=== PATIENT | male | born 1945 | race Caucasian/White ===

== ENCOUNTER 2018-08-24 20:51 | Emergency (ER) | payer MEDICARE, OTHER, SELFPAY ==
[~2018-08-24] VITALS: Ht 165.1 cm; Wt 70.0 kg
[2018-08-24] MEDS ORDERED: DIPHENHYDRAMINE 25 MG CAPSULE ONE (21:39)
[2018-08-24 21:50] VITALS: BP 152/81
[2018-08-24] MEDS ORDERED: PLEASE ENTER ALLERGIES MC SCH (22:00)
[2018-08-24] MEDS ORDERED: DIPHENHYDRAMINE 25 MG CAPSULE PO ONE (22:00)
[2018-08-24] MEDS ORDERED: PLEASE ENTER HEIGHT AND WEIGHT MC SCH (22:00)
== END 2018-08-24 23:09 | disposition home or self-care (01) ==
LOC: ED 22:53
DX: L29.9 Pruritus, unspecified (principal); R07.9 Chest pain, unspecified; R06.02 Shortness of breath; R05 Cough; R51 Headache; W57.XXXA Bitten or stung by nonvenomous insect and other nonvenomous arthropods, initial encounter; Y93.89 Activity, other specified; Y92.89 Other specified places as the place of occurrence of the external cause; Y99.8 Other external cause status
CPT/HCPCS: 99283

== ENCOUNTER 2018-08-26 07:42 | Inpatient (IN) | payer MEDICARE ==
[~2018-08-26] VITALS: Ht 172.7 cm; Wt 63.0 kg
[2018-08-26] MEDS ORDERED: SODIUM CHLORIDE 0.9% 1,000ML IVBOLUS ONE (08:00)
[2018-08-26] MEDS ORDERED: DIPHENHYDRAMINE 50 MG/ML, 1ML IVPush ONE (08:00)
[2018-08-26] MEDS ORDERED: ONDANSETRON 2MG/ML, 2ML IVPush ONE (08:00)
--- NOTE | 2018-08-26 08:03 | NUR ---
PT BIB [facility] AMBUL[facility] THIS AM. PT SHOWS BILATERAL LE WEEPING EDEMA, AND GENERALIZED BODY RASH ANDSCABBING INDICATING SCABIES INFECTION. PT SHOWS DRY MUCOUS MEMBRANES AND FATIGUE. PT IS SOMEWHAT TACHYPNEIC. PLACED ON MONITORS.
[2018-08-26] MEDS ORDERED: PLEASE ENTER HEIGHT AND WEIGHT MC SCH (08:30)
--- NOTE | 2018-08-26 08:46 | NUR ---
IV ACCESS OBTAINED, LAB IS AT BEDSIDE FOR BC X 2. UA SENT TO LAB. PILLOW AND BLANKET PROVIDED.
[2018-08-26] MEDS ORDERED: PERMETHRIN CRM 5%, 60GM ONE (08:49)
[2018-08-26 08:53] LABS: MEAN CORPUSCULAR HEMOGLOBIN 32.3 pg (27.5-34.5); MEAN CORPUSCULAR HGB CONC 33.8 g/dL (33.2-36.2); MEAN CORPUSCULAR VOLUME 95.6 fL (81-97); MEAN PLATELET VOLUME 7.7 fL (7.4-10.4); PLATELET COUNT 305 x10^3/uL (130-400); RED BLOOD COUNT 3.62 x10^6/uL (4.38-5.82); RED CELL DISTRIBUTION WIDTH 13.8 % (9.4-14.8)
[2018-08-26 08:57] LABS: CULTURE INDICATED? YES; MICROSCOPIC INDICATED
[2018-08-26 09:03] LABS: ANION GAP 11 mmol/L (5-15); CALCIUM 8.4 mg/dL (8.5-10.1); CHLORIDE 113 mmol/L (98-107)
[2018-08-26 09:06] LABS: ALANINE AMINOTRANSFERASE 23 U/L (12-78); ALKALINE PHOSPHATASE 63 U/L (45-117)
[2018-08-26 09:09] LABS: BASOPHILS # (AUTO) 0.01 x10^3/uL (0-0.1); BASOPHILS % (AUTO) 0 % (0-1); EOSINOPHILS # (AUTO) 0.03 x10^3/uL (0-0.4); EOSINOPHILS % (AUTO) 0 % (1-7); LYMPHOCYTES # (AUTO) 0.31 x10^3/uL (1-3.4); LYMPHOCYTES % (AUTO) 2 % (22-44); MD SCAN; MONOCYTES # (AUTO) 0.63 x10^3/uL (0.2-0.8); MONOCYTES % (AUTO) 4 % (2-9); NEUTROPHILS # (AUTO) 13.92 x10^3/uL (1.8-6.8); NEUTROPHILS % (AUTO) 94 % (42-75)
[2018-08-26] MEDS ORDERED: AMPICILLIN/SULBACTAM 3 GM in SODIUM CHLORIDE 0.9% 100 ML IV ONE (10:00)
--- NOTE | 2018-08-26 10:10 | NUR ---
PT IS ON ALL MONITORS WITH AUDIBLE ALARMS. CALL LIGHT IS WITHIN REACH.
[2018-08-26] MEDS ORDERED: ONDANSETRON 2MG/ML, 2ML ONE (10:19)
[2018-08-26] MEDS ORDERED: DIPHENHYDRAMINE 50 MG/ML, 1ML ONE (10:19)
[2018-08-26] MEDS ORDERED: PERMETHRIN CRM 5%, 60GM TP SCH (10:30)
--- NOTE | 2018-08-26 10:39 | NUR ---
PT IS FEBRILE, DR. LOPEZ MADE AWARE.
[2018-08-26] MEDS ORDERED: ACETAMINOPHEN 650 MG SUPP PR PRN (11:00)
--- NOTE | 2018-08-26 11:08 | NUR ---
ADMITTING MD AT BEDSIDE. CXR DONE, EKG DONE. PLACED PT ON OXYMASK FOR RECURRENT PERIODS OF DESATURATION. Addendum: 08/26/18 at 1109 by MARTHA FLU SWAB SENT TO LAB.
[2018-08-26] MEDS ORDERED: VANCOMYCIN PER PHARMACY MC PRN (11:30)
[2018-08-26] MEDS ORDERED: ONDANSETRON 2MG/ML, 2ML IVPush PRN (11:30)
[2018-08-26] MEDS ORDERED: ONDANSETRON ODT 4 MG PO PRN (11:30)
[2018-08-26] MEDS ORDERED: ACETAMINOPHEN 325 MG TABLET PO PRN (11:30)
[2018-08-26] MEDS ORDERED: PHARMACY MAY ADJ FOR RENAL FX MC PRN (11:30)
[2018-08-26] MEDS ORDERED: POLYETHYLENE GLYCOL 17 GM PACKET PO PRN (11:30)
[2018-08-26] MEDS ORDERED: BISACODYL 10 MG SUPP PR PRN (11:30)
--- NOTE | 2018-08-26 11:32 | NUR ---
CALLED REPORT TO RECEIVING RN. REGAN FOR PT TO GO TO THE FLOOR NOW. Addendum: 08/26/18 at 1248 by LFABELA ADMINISTERED TYLENOL CT AT 1115.
[2018-08-26] MEDS ORDERED: ACETAMINOPHEN 325 MG SUPP ONE (11:37)
[2018-08-26 12:23] VITALS: BP 145/75
[2018-08-26] MEDS: SODIUM CHLORIDE 0.9% 1,000 ML IV SCH ×2 (12:35→20:09)
[2018-08-26] MEDS ORDERED: PHARMACOKINETIC MONITORING MC PRN (13:00)
[2018-08-26] MEDS ORDERED: PHARMACOKINETIC CONSULTATION MC ONE (13:00)
[2018-08-26 13:19] LABS: RAPID INFLUENZA A Negative (Negative); RAPID INFLUENZA B Negative (Negative)
[2018-08-26] MEDS: PIPERACILLIN/TAZO/PMX 3.375GM 50 ML IV SCH ×2 (13:21→20:09)
[2018-08-26] MEDS: HEPARIN 5,000 UNITS/ML, 1ML SQ SCH ×2 (13:58→22:59)
[2018-08-26] MEDS: VANCOMYCIN 1,600 MG in SODIUM CHLORIDE 0.9% 250 ML IV SCH (13:58)
[2018-08-26 20:00] VITALS: BP 145/72
[2018-08-27 01:13] VITALS: BP 133/70
[2018-08-27] MEDS: PIPERACILLIN/TAZO/PMX 3.375GM 50 ML IV SCH ×5 (02:58→20:55)
[2018-08-27 04:13] LABS: ANION GAP 9 mmol/L (5-15); CALCIUM 6.9 mg/dL (8.5-10.1); CHLORIDE 121 mmol/L (98-107)
[2018-08-27 04:16] LABS: ALANINE AMINOTRANSFERASE 18 U/L (12-78); ALKALINE PHOSPHATASE 46 U/L (45-117); BILIRUBIN,TOTAL 0.9 mg/dL (0.2-1.0); CREATININE 2.28 mg/dL (0.7-1.3); TOTAL PROTEIN 5.7 g/dL (6.4-8.2)
[2018-08-27 04:18] LABS: MEAN CORPUSCULAR HEMOGLOBIN 33.1 pg (27.5-34.5); MEAN CORPUSCULAR HGB CONC 34.4 g/dL (33.2-36.2); MEAN CORPUSCULAR VOLUME 96.2 fL (81-97); MEAN PLATELET VOLUME 7.8 fL (7.4-10.4); PLATELET COUNT 215 x10^3/uL (130-400); RED BLOOD COUNT 3.06 x10^6/uL (4.38-5.82)
[2018-08-27 05:13] LABS: BASOPHILS % (AUTO) 0 % (0-1); EOSINOPHILS # (AUTO) 0.01 x10^3/uL (0-0.4); EOSINOPHILS % (AUTO) 0 % (1-7); LYMPHOCYTES # (AUTO) 0.28 x10^3/uL (1-3.4); LYMPHOCYTES % (AUTO) 2 % (22-44); MD SCAN; MONOCYTES # (AUTO) 0.74 x10^3/uL (0.2-0.8); MONOCYTES % (AUTO) 5 % (2-9); NEUTROPHILS # (AUTO) 14.78 x10^3/uL (1.8-6.8); NEUTROPHILS % (AUTO) 94 % (42-75)
[2018-08-27] MEDS: HEPARIN 5,000 UNITS/ML, 1ML SQ SCH ×3 (06:34→20:57)
[2018-08-27] MEDS: SODIUM CHLORIDE 0.9% 1,000 ML IV SCH (06:35)
[2018-08-27 07:39] VITALS: BP 118/68
[2018-08-27] MEDS: VANCOMYCIN 1,600 MG in SODIUM CHLORIDE 0.9% 250 ML IV SCH (14:11)
[2018-08-27 15:14] LABS: CALCIUM 7.8 mg/dL (8.5-10.1)
[2018-08-27 15:19] LABS: ABSOLUTE RETICS # 0.043 x10^6/uL (0.5-1.5); RED BLOOD COUNT 3.31 x10^6/uL (4.38-5.82); RETICULOCYTE COUNT % 1.3 % (0.5-1.5)
[2018-08-27 15:37] VITALS: BP 116/71
[2018-08-27 18:47] LABS: MICROSCOPIC INDICATED
[2018-08-27 19:02] LABS: POTASSIUM,URINE RANDOM 57 mmol/L; SODIUM,URINE RANDOM 8 mmol/L; TOTAL PROTEIN,URINE RANDOM 102 mg/dL (0-12)
[2018-08-27 19:03] LABS: CHLORIDE,URINE RANDOM < 10 mmol/L
[2018-08-27 19:13] LABS: OSMOLALITY,URINE 509 mOsm/kg (500-850)
[2018-08-27 20:56] VITALS: BP 129/74
[2018-08-28 01:58] VITALS: BP 131/75
[2018-08-28] MEDS: PIPERACILLIN/TAZO/PMX 3.375GM 50 ML IV SCH ×4 (03:31→21:00)
[2018-08-28 04:40] LABS: MEAN CORPUSCULAR HGB CONC 33.8 g/dL (33.2-36.2); MEAN CORPUSCULAR VOLUME 97.8 fL (81-97); MEAN PLATELET VOLUME 7.9 fL (7.4-10.4); PLATELET COUNT 227 x10^3/uL (130-400); RED BLOOD COUNT 3.22 x10^6/uL (4.38-5.82); RED CELL DISTRIBUTION WIDTH 13.9 % (9.4-14.8)
[2018-08-28 04:51] LABS: ALANINE AMINOTRANSFERASE 19 U/L (12-78); ANION GAP 10 mmol/L (5-15); CALCIUM 7.6 mg/dL (8.5-10.1); CHLORIDE 117 mmol/L (98-107); CREATININE 2.27 mg/dL (0.7-1.3)
[2018-08-28 04:54] LABS: ALKALINE PHOSPHATASE 52 U/L (45-117); BILIRUBIN,TOTAL 0.7 mg/dL (0.2-1.0); CREATINE KINASE, TOTAL 183 U/L (39-308); TOTAL PROTEIN 5.8 g/dL (6.4-8.2)
[2018-08-28 05:00] LABS: BASOPHILS % (AUTO) 0 % (0-1); EOSINOPHILS # (AUTO) 0.14 x10^3/uL (0-0.4); EOSINOPHILS % (AUTO) 1 % (1-7); LYMPHOCYTES % (AUTO) 3 % (22-44); MD SCAN; MONOCYTES # (AUTO) 0.92 x10^3/uL (0.2-0.8); MONOCYTES % (AUTO) 5 % (2-9); NEUTROPHILS # (AUTO) 15.75 x10^3/uL (1.8-6.8); NEUTROPHILS % (AUTO) 91 % (42-75)
[2018-08-28] MEDS: HEPARIN 5,000 UNITS/ML, 1ML SQ SCH ×3 (05:56→21:10)
[2018-08-28 07:35] VITALS: BP 132/74
[2018-08-28 12:01] VITALS: BP 125/61
[2018-08-28] MEDS: ERGOCALCIFEROL 50,000 UNIT CAPSULE PO SCH (12:43)
[2018-08-28] MEDS: IRON SUCROSE COMPLEX 100MG/5ML IV SCH (12:43)
[2018-08-28 20:00] VITALS: BP 132/75
[2018-08-29] MEDS: PIPERACILLIN/TAZO/PMX 3.375GM 50 ML IV SCH ×4 (01:51→22:27)
[2018-08-29 02:00] VITALS: BP 138/70
[2018-08-29] MEDS: HEPARIN 5,000 UNITS/ML, 1ML SQ SCH (04:31)
[2018-08-29 06:19] LABS: CHLORIDE 117 mmol/L (98-107)
[2018-08-29 06:27] LABS: ALANINE AMINOTRANSFERASE 64 U/L (12-78); ALBUMIN 1.9 g/dL (3.4-5.0); ALKALINE PHOSPHATASE 64 U/L (45-117); ANION GAP 11 mmol/L (5-15); BILIRUBIN,TOTAL 0.4 mg/dL (0.2-1.0); CALCIUM 7.6 mg/dL (8.5-10.1); CREATININE 1.98 mg/dL (0.7-1.3); TOTAL PROTEIN 5.6 g/dL (6.4-8.2)
[2018-08-29 07:16] VITALS: BP 129/65
[2018-08-29 08:04] LABS: MEAN CORPUSCULAR HEMOGLOBIN 31.9 pg (27.5-34.5); MEAN CORPUSCULAR HGB CONC 33.3 g/dL (33.2-36.2); MEAN CORPUSCULAR VOLUME 95.8 fL (81-97); RED BLOOD COUNT 3.32 x10^6/uL (4.38-5.82); RED CELL DISTRIBUTION WIDTH 14.1 % (9.4-14.8)
[2018-08-29 08:22] LABS: BASOPHILS # (AUTO) 0.01 x10^3/uL (0-0.1); BASOPHILS % (AUTO) 0 % (0-1); EOSINOPHILS # (AUTO) 0.36 x10^3/uL (0-0.4); EOSINOPHILS % (AUTO) 2 % (1-7); LYMPHOCYTES # (AUTO) 0.51 x10^3/uL (1-3.4); LYMPHOCYTES % (AUTO) 4 % (22-44); MD MORPH REVIEW ONLY; MEAN PLATELET VOLUME 8.4 fL (7.4-10.4); MONOCYTES # (AUTO) 0.75 x10^3/uL (0.2-0.8); MONOCYTES % (AUTO) 5 % (2-9); NEUTROPHILS % (AUTO) 89 % (42-75); PLATELET COUNT 245 x10^3/uL (130-400)
[2018-08-29 08:23] LABS: <RBC MORPHOLOGY> NORMAL; TOXIC GRAN 1+
[2018-08-29 09:08] LABS: <PLATELET ESTIMATE> ADEQUATE; <PLT MORPHOLOGY> NORMAL PLT MORPH
[2018-08-29] MEDS ORDERED: CALAMINE LOTION 180ML TP PRN (11:00)
[2018-08-29 11:02] LABS: OCCULT BLOOD POSITIVE (NEGATIVE)
[2018-08-29] MEDS: SODIUM BICARBONATE 650 MG TABLET PO SCH ×2 (11:48→20:03)
[2018-08-29 13:55] VITALS: BP_SYST 164; BP_SYST 165; BP_DIAS 82; BP_DIAS 87
[2018-08-29] MEDS ORDERED: VANCOMYCIN 1,300 MG in SODIUM CHLORIDE 0.9% 250 ML IV SCH (15:30)
[2018-08-29 20:00] VITALS: BP 179/88
[2018-08-29] MEDS: IRON SUCROSE COMPLEX 100MG/5ML IV SCH (20:03)
[2018-08-30 03:50] VITALS: BP 163/80
[2018-08-30] MEDS: PIPERACILLIN/TAZO/PMX 3.375GM 50 ML IV SCH ×2 (03:51→11:56)
[2018-08-30 05:38] LABS: BASOPHILS # (AUTO) 0.05 x10^3/uL (0-0.1); BASOPHILS % (AUTO) 0 % (0-1); EOSINOPHILS # (AUTO) 0.74 x10^3/uL (0-0.4); EOSINOPHILS % (AUTO) 6 % (1-7); LYMPHOCYTES % (AUTO) 4 % (22-44); MD NO; MEAN CORPUSCULAR HGB CONC 34.4 g/dL (33.2-36.2); MEAN CORPUSCULAR VOLUME 95.7 fL (81-97); MEAN PLATELET VOLUME 8.1 fL (7.4-10.4); MONOCYTES # (AUTO) 0.76 x10^3/uL (0.2-0.8); MONOCYTES % (AUTO) 6 % (2-9); NEUTROPHILS # (AUTO) 9.84 x10^3/uL (1.8-6.8); NEUTROPHILS % (AUTO) 83 % (42-75); PLATELET COUNT 264 x10^3/uL (130-400); RED BLOOD COUNT 2.99 x10^6/uL (4.38-5.82); RED CELL DISTRIBUTION WIDTH 13.9 % (9.4-14.8)
[2018-08-30 05:43] LABS: OCCULT BLOOD POSITIVE (NEGATIVE)
[2018-08-30 05:48] LABS: ANION GAP 7 mmol/L (5-15); CALCIUM 7.7 mg/dL (8.5-10.1); CHLORIDE 118 mmol/L (98-107)
[2018-08-30 05:53] LABS: ALANINE AMINOTRANSFERASE 70 U/L (12-78); ALKALINE PHOSPHATASE 62 U/L (45-117); BILIRUBIN,TOTAL 0.5 mg/dL (0.2-1.0); TOTAL PROTEIN 5.9 g/dL (6.4-8.2)
[2018-08-30 07:49] VITALS: BP 171/85
[2018-08-30] MEDS ORDERED: AMLODIPINE 5 MG TABLET ONE (08:13)
[2018-08-30] MEDS: SODIUM BICARBONATE 650 MG TABLET PO SCH ×2 (08:18→21:10)
[2018-08-30] MEDS: DIPHENHYDRAMINE 25 MG CAPSULE PO PRN (08:18)
[2018-08-30] MEDS: IRON SUCROSE COMPLEX 100MG/5ML IV SCH (08:18)
[2018-08-30] MEDS: AMLODIPINE 5 MG TABLET PO SCH (08:18)
[2018-08-30 13:31] VITALS: BP 159/83
[2018-08-30] MEDS ORDERED: THIAMINE 200 MG in SODIUM CHLORIDE 0.9% 50 ML IV ONE (16:00)
[2018-08-30] MEDS: PANTOPRAZOLE 40 MG IV IVPush SCH (16:31)
[2018-08-30] MEDS: CEFTRIAXONE PMX 2GM/50ML 50 ML IV SCH (16:47)
[2018-08-30 19:50] VITALS: BP 156/82
[2018-08-31 02:11] VITALS: BP 170/80
[2018-08-31 03:22] VITALS: BP 165/78
[2018-08-31] MEDS: PANTOPRAZOLE 40 MG IV IVPush SCH ×2 (04:47→16:13)
[2018-08-31 04:51] LABS: OCCULT BLOOD POSITIVE (NEGATIVE)
[2018-08-31 06:00] LABS: BASOPHILS # (AUTO) 0.04 x10^3/uL (0-0.1); BASOPHILS % (AUTO) 0 % (0-1); EOSINOPHILS # (AUTO) 0.83 x10^3/uL (0-0.4); EOSINOPHILS % (AUTO) 8 % (1-7); LYMPHOCYTES # (AUTO) 0.61 x10^3/uL (1-3.4); LYMPHOCYTES % (AUTO) 6 % (22-44); MD NO; MEAN CORPUSCULAR HEMOGLOBIN 32.7 pg (27.5-34.5); MEAN CORPUSCULAR HGB CONC 33.8 g/dL (33.2-36.2); MEAN CORPUSCULAR VOLUME 96.8 fL (81-97); MEAN PLATELET VOLUME 8.5 fL (7.4-10.4); MONOCYTES % (AUTO) 8 % (2-9); NEUTROPHILS % (AUTO) 78 % (42-75); PLATELET COUNT 275 x10^3/uL (130-400); RED BLOOD COUNT 3.15 x10^6/uL (4.38-5.82); RED CELL DISTRIBUTION WIDTH 13.9 % (9.4-14.8)
[2018-08-31 06:20] LABS: ANION GAP 9 mmol/L (5-15); CHLORIDE 119 mmol/L (98-107)
[2018-08-31 06:23] LABS: CREATININE 1.36 mg/dL (0.7-1.3)
[2018-08-31 06:24] LABS: ALANINE AMINOTRANSFERASE 54 U/L (12-78); ALKALINE PHOSPHATASE 69 U/L (45-117); BILIRUBIN,TOTAL 0.3 mg/dL (0.2-1.0); TOTAL PROTEIN 6.1 g/dL (6.4-8.2)
[2018-08-31 07:32] VITALS: BP 171/91
[2018-08-31] MEDS: IRON SUCROSE COMPLEX 100MG/5ML IV SCH (07:52)
[2018-08-31] MEDS: SODIUM BICARBONATE 650 MG TABLET PO SCH ×3 (07:52→20:57)
[2018-08-31] MEDS: AMLODIPINE 5 MG TABLET PO SCH ×2 (07:52→08:46)
[2018-08-31] MEDS ORDERED: DEXTROSE 5% 1,000 ML IV SCH (08:00)
[2018-08-31] MEDS: ALBUTEROL SULFATE 2.5 MG/3 ML NPPB PRN (11:14)
[2018-08-31] MEDS ORDERED: FUROSEMIDE 40 MG/4 ML IV ONE ×2 (11:30→17:00)
[2018-08-31] MEDS ORDERED: LORazepam 2 MG/ML, 1ML IVPush ONE (11:30)
[2018-08-31] MEDS: DIPHENHYDRAMINE 25 MG CAPSULE PO PRN (12:03)
[2018-08-31 14:00] VITALS: BP 158/89
[2018-08-31] MEDS ORDERED: ALBUTEROL SULFATE 2.5 MG/3 ML NPPB SCH (16:00)
[2018-08-31] MEDS: CEFTRIAXONE PMX 2GM/50ML 50 ML IV SCH (16:14)
[2018-08-31] MEDS: PANTOPROZOLE 40MG TABLET PO SCH (17:00)
[2018-08-31 21:14] VITALS: BP 168/86
[2018-09-01] VITALS (8 sets, daily range): BP systolic 162–182; BP diastolic 76–106
[2018-09-01 05:59] LABS: MEAN CORPUSCULAR HEMOGLOBIN 32.4 pg (27.5-34.5); MEAN CORPUSCULAR HGB CONC 33.6 g/dL (33.2-36.2); MEAN CORPUSCULAR VOLUME 96.6 fL (81-97); MEAN PLATELET VOLUME 7.8 fL (7.4-10.4); PLATELET COUNT 281 x10^3/uL (130-400); RED BLOOD COUNT 3.35 x10^6/uL (4.38-5.82); RED CELL DISTRIBUTION WIDTH 13.9 % (9.4-14.8)
[2018-09-01 06:12] LABS: CHLORIDE 116 mmol/L (98-107)
[2018-09-01 06:20] LABS: ALANINE AMINOTRANSFERASE 44 U/L (12-78); ALBUMIN 2.2 g/dL (3.4-5.0); ALKALINE PHOSPHATASE 66 U/L (45-117); ANION GAP 7 mmol/L (5-15); BILIRUBIN,TOTAL 0.3 mg/dL (0.2-1.0); CALCIUM 8.5 mg/dL (8.5-10.1); CREATININE 1.33 mg/dL (0.7-1.3); TOTAL PROTEIN 6.7 g/dL (6.4-8.2)
[2018-09-01 06:29] LABS: BASOPHILS # (AUTO) 0.01 x10^3/uL (0-0.1); BASOPHILS % (AUTO) 0 % (0-1); EOSINOPHILS # (AUTO) 0.81 x10^3/uL (0-0.4); EOSINOPHILS % (AUTO) 9 % (1-7); LYMPHOCYTES # (AUTO) 0.76 x10^3/uL (1-3.4); LYMPHOCYTES % (AUTO) 8 % (22-44); MD SCAN; MONOCYTES # (AUTO) 0.88 x10^3/uL (0.2-0.8); MONOCYTES % (AUTO) 10 % (2-9); NEUTROPHILS # (AUTO) 6.66 x10^3/uL (1.8-6.8); NEUTROPHILS % (AUTO) 73 % (42-75)
[2018-09-01] MEDS: PANTOPROZOLE 40MG TABLET PO SCH ×2 (08:00→16:42)
[2018-09-01] MEDS: FUROSEMIDE 40 MG/4 ML IV SCH ×2 (08:13→16:42)
[2018-09-01] MEDS: AMLODIPINE 5 MG TABLET PO SCH (08:14)
[2018-09-01] MEDS: SODIUM BICARBONATE 650 MG TABLET PO SCH ×2 (08:14→21:16)
[2018-09-01] MEDS: IRON SUCROSE COMPLEX 100MG/5ML IV SCH (08:15)
[2018-09-01] MEDS: hydrALAzine 20 MG/ML, 1ML IVPush PRN ×2 (10:54→18:37)
[2018-09-01] MEDS: DOCUSATE 100 MG CAPSULE PO PRN (10:54)
[2018-09-01] MEDS: ALBUTEROL SULFATE 2.5 MG/3 ML NPPB PRN (11:11)
[2018-09-01] MEDS: LABETALOL 5MG/ML, 20ML IVPush PRN ×2 (14:24→19:23)
[2018-09-01] MEDS: CEFTRIAXONE PMX 2GM/50ML 50 ML IV SCH (16:41)
[2018-09-01] MEDS: DIPHENHYDRAMINE 25 MG CAPSULE PO PRN (16:41)
[2018-09-02 00:44] VITALS: BP 175/81
[2018-09-02 05:26] VITALS: BP 173/80
[2018-09-02 05:29] LABS: MEAN CORPUSCULAR HEMOGLOBIN 32.6 pg (27.5-34.5); MEAN CORPUSCULAR HGB CONC 34.2 g/dL (33.2-36.2); MEAN CORPUSCULAR VOLUME 95.5 fL (81-97); PLATELET COUNT 340 x10^3/uL (130-400); RED BLOOD COUNT 3.29 x10^6/uL (4.38-5.82); RED CELL DISTRIBUTION WIDTH 14.1 % (9.4-14.8)
[2018-09-02] MEDS: hydrALAzine 20 MG/ML, 1ML IVPush PRN (05:29)
[2018-09-02 05:34] LABS: ALBUMIN 2.3 g/dL (3.4-5.0); ANION GAP 7 mmol/L (5-15); CALCIUM 8.2 mg/dL (8.5-10.1); CHLORIDE 110 mmol/L (98-107)
[2018-09-02 05:36] LABS: CREATININE 1.35 mg/dL (0.7-1.3)
[2018-09-02 05:58] LABS: MD YES
[2018-09-02 06:13] LABS: <PLATELET ESTIMATE> ADEQUATE; <PLT MORPHOLOGY> NORMAL PLT MORPH; ANISOCYTOSIS 1+; BANDS%(MANUAL) 1 % (0-7); EOS#(MANUAL) 0.72 x10^3/uL (0.0-0.4); EOS% (MANUAL) 7 % (1-7); LYMPH#(MANUAL) 0.52 x10^3/uL (1-3.4); LYMPHS% (MANUAL) 5 % (22-44); METAMYELOCYTES# (MANUAL) 0.41 x10^3/uL (0-0); METAMYELOCYTES% (MANUAL) 4 % (0-1); MONOS#(MANUAL) 0.93 x10^3/uL (0.3-2.7); MONOS% (MANUAL) 9 % (2-9); MYELOCYTES% (MANUAL) 1 % (0-0); SEG#(MANUAL) 7.52 x10^3/uL (1.8-6.8); SEGS% (MANUAL) 73 % (42-75)
[2018-09-02 06:14] LABS: POLYCHROMASIA 1+
[2018-09-02 06:43] VITALS: BP 155/85
[2018-09-02 08:01] VITALS: BP 152/80
[2018-09-02] MEDS: AMLODIPINE 5 MG TABLET PO SCH (09:55)
[2018-09-02] MEDS: PANTOPROZOLE 40MG TABLET PO SCH ×2 (09:55→16:44)
[2018-09-02] MEDS: FUROSEMIDE 40 MG/4 ML IV SCH (09:56)
[2018-09-02] MEDS: SODIUM BICARBONATE 650 MG TABLET PO SCH (09:56)
[2018-09-02] MEDS: CEPHALEXIN 500 MG CAPSULE PO SCH ×3 (11:18→22:49)
[2018-09-02] MEDS: LISINOPRIL 5 MG TABLET PO SCH (12:27)
[2018-09-02 14:30] VITALS: BP 150/80
--- NOTE | 2018-09-02 15:18 | NUR ---
Patient placed on a pureed diet with thin liquids. Patient was educated on swallow strategies and precautions and these were placed on an orange sheet in his room on his whiteboard. Addendum: 09/02/18 at 1539 by GENEVIEVE RING Amended: Links added.
[2018-09-02 19:43] VITALS: BP 169/85
[2018-09-03] VITALS (7 sets, daily range): BP systolic 158–196; BP diastolic 68–99
[2018-09-03] MEDS: PANTOPROZOLE 40MG TABLET PO SCH ×2 (08:00→17:00)
[2018-09-03] MEDS: LISINOPRIL 5 MG TABLET PO SCH (09:00)
[2018-09-03] MEDS: CEPHALEXIN 500 MG CAPSULE PO SCH ×3 (09:00→20:46)
[2018-09-03] MEDS: SODIUM BICARBONATE 650 MG TABLET PO SCH (09:00)
[2018-09-03] MEDS: AMLODIPINE 5 MG TABLET PO SCH (09:00)
[2018-09-03] MEDS: LABETALOL 5MG/ML, 20ML IVPush PRN (10:35)
[2018-09-03] MEDS: hydrALAzine 20 MG/ML, 1ML IVPush PRN (12:11)
[2018-09-03 12:39] LABS: CULTURE INDICATED? YES; MICROSCOPIC AUTO
[2018-09-03] MEDS: SODIUM CHLORIDE 0.45% 1,000 ML IV SCH (17:00)
[2018-09-03] MEDS: PIPERACILLIN/TAZO/PMX 3.375GM 50 ML IV SCH ×2 (17:00→22:12)
[2018-09-04] MEDS: SODIUM CHLORIDE 0.45% 1,000 ML IV SCH ×3 (01:09→16:47)
[2018-09-04 01:15] VITALS: BP 159/96
[2018-09-04] MEDS: PIPERACILLIN/TAZO/PMX 3.375GM 50 ML IV SCH ×4 (03:57→22:11)
[2018-09-04 07:27] VITALS: BP 160/83
[2018-09-04] MEDS: AMLODIPINE 5 MG TABLET PO SCH (09:17)
[2018-09-04] MEDS: LISINOPRIL 5 MG TABLET PO SCH (09:17)
[2018-09-04] MEDS: CEPHALEXIN 500 MG CAPSULE PO SCH (09:17)
[2018-09-04] MEDS: SODIUM BICARBONATE 650 MG TABLET PO SCH (09:17)
[2018-09-04] MEDS: PANTOPROZOLE 40MG TABLET PO SCH ×2 (09:17→16:42)
[2018-09-04] MEDS: ERGOCALCIFEROL 50,000 UNIT CAPSULE PO SCH (11:18)
[2018-09-04 12:57] VITALS: BP 165/77
[2018-09-04 20:00] VITALS: BP 176/85
[2018-09-05] MEDS: SODIUM CHLORIDE 0.45% 1,000 ML IV SCH (01:43)
[2018-09-05 03:30] VITALS: BP 157/83
[2018-09-05] MEDS: PIPERACILLIN/TAZO/PMX 3.375GM 50 ML IV SCH ×4 (04:09→22:00)
[2018-09-05 05:53] LABS: BASOPHILS # (AUTO) 0.01 x10^3/uL (0-0.1); BASOPHILS % (AUTO) 0 % (0-1); EOSINOPHILS # (AUTO) 0.59 x10^3/uL (0-0.4); EOSINOPHILS % (AUTO) 6 % (1-7); LYMPHOCYTES # (AUTO) 0.75 x10^3/uL (1-3.4); LYMPHOCYTES % (AUTO) 7 % (22-44); MD NO; MEAN CORPUSCULAR HEMOGLOBIN 31.9 pg (27.5-34.5); MEAN CORPUSCULAR HGB CONC 33.2 g/dL (33.2-36.2); MEAN PLATELET VOLUME 8.1 fL (7.4-10.4); MONOCYTES # (AUTO) 0.53 x10^3/uL (0.2-0.8); MONOCYTES % (AUTO) 5 % (2-9); NEUTROPHILS # (AUTO) 8.84 x10^3/uL (1.8-6.8); NEUTROPHILS % (AUTO) 82 % (42-75); PLATELET COUNT 297 x10^3/uL (130-400); RED BLOOD COUNT 3.24 x10^6/uL (4.38-5.82); RED CELL DISTRIBUTION WIDTH 14.4 % (9.4-14.8)
[2018-09-05 06:04] LABS: ALBUMIN 1.8 g/dL (3.4-5.0); ANION GAP 10 mmol/L (5-15); CALCIUM 7.6 mg/dL (8.5-10.1); CHLORIDE 117 mmol/L (98-107); CREATININE 1.51 mg/dL (0.7-1.3)
[2018-09-05 08:22] VITALS: BP 140/62
[2018-09-05] MEDS: POTASSIUM CHLORIDE 20 MEQ in SODIUM CHLORIDE 0.45% 1,000 ML IV SCH ×2 (08:40→22:00)
[2018-09-05] MEDS: SODIUM BICARBONATE 650 MG TABLET PO SCH (08:41)
[2018-09-05] MEDS: LISINOPRIL 5 MG TABLET PO SCH (08:41)
[2018-09-05] MEDS: AMLODIPINE 5 MG TABLET PO SCH (08:41)
[2018-09-05] MEDS: PANTOPROZOLE 40MG TABLET PO SCH ×2 (08:41→16:20)
[2018-09-05 13:54] VITALS: BP 152/79
[2018-09-05] MEDS ORDERED: THIAMINE 100MG TABLET PO ONE (14:00)
[2018-09-05] MEDS: CLINDAMYCIN PMX 600MG/50ML 50 ML IV SCH (17:01)
[2018-09-05 18:51] VITALS: BP 156/86
[2018-09-05] MEDS: DOCUSATE 100 MG CAPSULE PO PRN (22:07)
[2018-09-06] MEDS: CLINDAMYCIN PMX 600MG/50ML 50 ML IV SCH ×3 (01:35→17:02)
[2018-09-06] MEDS ORDERED: FUROSEMIDE 40 MG/4 ML ONE (02:23)
[2018-09-06 02:27] VITALS: BP 144/84
[2018-09-06] MEDS ORDERED: FUROSEMIDE 40 MG/4 ML IV ONE (02:30)
[2018-09-06] MEDS: PIPERACILLIN/TAZO/PMX 3.375GM 50 ML IV SCH ×3 (04:19→16:08)
[2018-09-06 08:07] VITALS: BP 144/76
[2018-09-06 08:19] LABS: MEAN CORPUSCULAR HEMOGLOBIN 31.9 pg (27.5-34.5); MEAN CORPUSCULAR HGB CONC 33.5 g/dL (33.2-36.2); MEAN CORPUSCULAR VOLUME 95.4 fL (81-97); MEAN PLATELET VOLUME 8.1 fL (7.4-10.4); PLATELET COUNT 339 x10^3/uL (130-400); RED BLOOD COUNT 3.33 x10^6/uL (4.38-5.82); RED CELL DISTRIBUTION WIDTH 14.6 % (9.4-14.8)
[2018-09-06 08:29] LABS: ANION GAP 8 mmol/L (5-15); CALCIUM 7.9 mg/dL (8.5-10.1); CHLORIDE 115 mmol/L (98-107); CREATININE 1.57 mg/dL (0.7-1.3)
[2018-09-06 08:55] LABS: BASOPHILS # (AUTO) 0.08 x10^3/uL (0-0.1); BASOPHILS % (AUTO) 1 % (0-1); EOSINOPHILS # (AUTO) 0.96 x10^3/uL (0-0.4); EOSINOPHILS % (AUTO) 9 % (1-7); LYMPHOCYTES # (AUTO) 0.78 x10^3/uL (1-3.4); LYMPHOCYTES % (AUTO) 8 % (22-44); MD SCAN; MONOCYTES # (AUTO) 0.64 x10^3/uL (0.2-0.8); MONOCYTES % (AUTO) 6 % (2-9); NEUTROPHILS # (AUTO) 7.87 x10^3/uL (1.8-6.8); NEUTROPHILS % (AUTO) 76 % (42-75)
[2018-09-06] MEDS: SODIUM BICARBONATE 650 MG TABLET PO SCH (09:53)
[2018-09-06] MEDS: PANTOPROZOLE 40MG TABLET PO SCH ×2 (09:53→17:36)
[2018-09-06] MEDS: LISINOPRIL 5 MG TABLET PO SCH (09:53)
[2018-09-06] MEDS: AMLODIPINE 5 MG TABLET PO SCH (09:53)
[2018-09-06] MEDS: THIAMINE 100MG TABLET PO SCH (09:55)
[2018-09-06 12:31] VITALS: BP 154/75
[2018-09-06 12:38] LABS: CLOSTRIDIUM DIFFICILE ANTIGEN NEGATIVE; CLOSTRIDIUM DIFFICILE TOXIN NEGATIVE (Negative)
[2018-09-06 20:21] VITALS: BP 157/76
[2018-09-06] MEDS: CEPHALEXIN 500 MG CAPSULE PO SCH (20:50)
[2018-09-07 00:53] VITALS: BP 156/86
[2018-09-07] MEDS: CLINDAMYCIN PMX 600MG/50ML 50 ML IV SCH ×3 (01:09→18:24)
[2018-09-07] MEDS: CEPHALEXIN 500 MG CAPSULE PO SCH ×3 (05:26→20:09)
[2018-09-07 08:24] VITALS: BP 172/83
[2018-09-07] MEDS: PANTOPROZOLE 40MG TABLET PO SCH ×2 (09:01→18:24)
[2018-09-07] MEDS: THIAMINE 100MG TABLET PO SCH (09:02)
[2018-09-07] MEDS: LISINOPRIL 5 MG TABLET PO SCH (09:02)
[2018-09-07] MEDS: AMLODIPINE 5 MG TABLET PO SCH (09:03)
[2018-09-07] MEDS: SODIUM BICARBONATE 650 MG TABLET PO SCH (09:03)
[2018-09-07 10:31] LABS: HCT (SEDRATE) 31.4 % (39.2-51.8)
[2018-09-07 12:59] VITALS: BP 164/79
[2018-09-07 18:59] VITALS: BP 165/84
[2018-09-07 22:43] VITALS: BP 153/82
[2018-09-08 00:47] VITALS: BP_SYST 174; BP_SYST 177; BP_DIAS 85; BP_DIAS 89
[2018-09-08] MEDS: hydrALAzine 20 MG/ML, 1ML IVPush PRN (01:14)
[2018-09-08] MEDS: CLINDAMYCIN PMX 600MG/50ML 50 ML IV SCH ×3 (02:48→20:24)
[2018-09-08 03:01] VITALS: BP 171/86
[2018-09-08] MEDS: LABETALOL 5MG/ML, 20ML IVPush PRN (03:06)
[2018-09-08 03:57] VITALS: BP 126/68
[2018-09-08] MEDS: CEPHALEXIN 500 MG CAPSULE PO SCH ×3 (04:54→20:25)
[2018-09-08 06:02] LABS: CREATININE 1.18 mg/dL (0.7-1.3)
[2018-09-08 07:34] VITALS: BP 163/83
[2018-09-08] MEDS: PANTOPROZOLE 40MG TABLET PO SCH ×2 (08:06→17:26)
[2018-09-08] MEDS: AMLODIPINE 5 MG TABLET PO SCH (08:06)
[2018-09-08] MEDS: THIAMINE 100MG TABLET PO SCH (08:06)
[2018-09-08] MEDS: SODIUM BICARBONATE 650 MG TABLET PO SCH (08:06)
[2018-09-08] MEDS: LISINOPRIL 5 MG TABLET PO SCH (08:07)
[2018-09-08 14:01] VITALS: BP 128/75
[2018-09-08 19:28] VITALS: BP 154/78
[2018-09-09 00:38] VITALS: BP 153/75
[2018-09-09] MEDS: CLINDAMYCIN PMX 600MG/50ML 50 ML IV SCH ×3 (04:21→18:24)
[2018-09-09] MEDS: CEPHALEXIN 500 MG CAPSULE PO SCH ×3 (04:21→22:22)
[2018-09-09 05:30] LABS: HCT (SEDRATE) 30.5 % (39.2-51.8)
[2018-09-09 05:37] LABS: ALBUMIN 2.1 g/dL (3.4-5.0); ANION GAP 8 mmol/L (5-15); CALCIUM 8.3 mg/dL (8.5-10.1); CHLORIDE 116 mmol/L (98-107)
[2018-09-09 05:49] LABS: ALANINE AMINOTRANSFERASE 39 U/L (12-78); ALKALINE PHOSPHATASE 85 U/L (45-117); BILIRUBIN,TOTAL 0.5 mg/dL (0.2-1.0); CREATININE 1.21 mg/dL (0.7-1.3); TOTAL PROTEIN 6.7 g/dL (6.4-8.2)
[2018-09-09 06:59] VITALS: BP 164/72
[2018-09-09] MEDS: THIAMINE 100MG TABLET PO SCH (08:20)
[2018-09-09] MEDS: SODIUM BICARBONATE 650 MG TABLET PO SCH (08:20)
[2018-09-09] MEDS: LISINOPRIL 5 MG TABLET PO SCH (08:20)
[2018-09-09] MEDS: AMLODIPINE 5 MG TABLET PO SCH (08:20)
[2018-09-09] MEDS: PANTOPROZOLE 40MG TABLET PO SCH ×2 (08:20→16:49)
[2018-09-09] MEDS ORDERED: PERMETHRIN CRM 5%, 60GM TP SCH (11:00)
[2018-09-09 12:35] VITALS: BP 146/81
[2018-09-09 19:26] VITALS: BP 154/74
[2018-09-10 00:09] VITALS: BP 156/73
[2018-09-10] MEDS: CLINDAMYCIN PMX 600MG/50ML 50 ML IV SCH ×3 (03:59→19:19)
[2018-09-10] MEDS: CEPHALEXIN 500 MG CAPSULE PO SCH ×3 (06:01→20:51)
[2018-09-10 08:04] VITALS: BP 173/71
[2018-09-10] MEDS: THIAMINE 100MG TABLET PO SCH (08:53)
[2018-09-10] MEDS: AMLODIPINE 5 MG TABLET PO SCH (08:53)
[2018-09-10] MEDS: LISINOPRIL 5 MG TABLET PO SCH (08:53)
[2018-09-10] MEDS: PANTOPROZOLE 40MG TABLET PO SCH ×2 (08:53→16:53)
[2018-09-10] MEDS: SODIUM BICARBONATE 650 MG TABLET PO SCH (08:54)
[2018-09-10 12:31] VITALS: BP 147/81
[2018-09-10 20:31] VITALS: BP 132/71
[2018-09-11 00:14] VITALS: BP 152/80
[2018-09-11] MEDS: CLINDAMYCIN PMX 600MG/50ML 50 ML IV SCH ×3 (03:17→20:01)
[2018-09-11] MEDS: CEPHALEXIN 500 MG CAPSULE PO SCH ×3 (05:11→20:01)
[2018-09-11 05:53] LABS: BASOPHILS # (AUTO) 0.04 x10^3/uL (0-0.1); BASOPHILS % (AUTO) 1 % (0-1); EOSINOPHILS # (AUTO) 0.35 x10^3/uL (0-0.4); EOSINOPHILS % (AUTO) 4 % (1-7); LYMPHOCYTES % (AUTO) 14 % (22-44); MD NO; MEAN CORPUSCULAR HGB CONC 33.9 g/dL (33.2-36.2); MEAN CORPUSCULAR VOLUME 94.4 fL (81-97); MONOCYTES # (AUTO) 0.78 x10^3/uL (0.2-0.8); MONOCYTES % (AUTO) 10 % (2-9); NEUTROPHILS # (AUTO) 5.72 x10^3/uL (1.8-6.8); NEUTROPHILS % (AUTO) 72 % (42-75); PLATELET COUNT 342 x10^3/uL (130-400); RED BLOOD COUNT 3.26 x10^6/uL (4.38-5.82); RED CELL DISTRIBUTION WIDTH 14.9 % (9.4-14.8)
[2018-09-11 05:57] LABS: ANION GAP 8 mmol/L (5-15); CALCIUM 7.9 mg/dL (8.5-10.1); CHLORIDE 115 mmol/L (98-107); CREATININE 1.09 mg/dL (0.7-1.3)
[2018-09-11 06:46] VITALS: BP 145/81
[2018-09-11] MEDS: SODIUM BICARBONATE 650 MG TABLET PO SCH (08:43)
[2018-09-11] MEDS: AMLODIPINE 5 MG TABLET PO SCH (08:43)
[2018-09-11] MEDS: THIAMINE 100MG TABLET PO SCH (08:43)
[2018-09-11] MEDS: PANTOPROZOLE 40MG TABLET PO SCH ×2 (08:43→17:16)
[2018-09-11] MEDS: LISINOPRIL 10 MG TABLET PO SCH (08:43)
[2018-09-11] MEDS: ERGOCALCIFEROL 50,000 UNIT CAPSULE PO SCH (11:12)
[2018-09-11 12:46] VITALS: BP 153/89
[2018-09-12 01:46] VITALS: BP 156/78
[2018-09-12] MEDS: CLINDAMYCIN PMX 600MG/50ML 50 ML IV SCH ×3 (03:54→20:07)
[2018-09-12] MEDS: CEPHALEXIN 500 MG CAPSULE PO SCH ×3 (05:36→21:19)
[2018-09-12 07:52] VITALS: BP 132/72
[2018-09-12] MEDS: SODIUM BICARBONATE 650 MG TABLET PO SCH (09:00)
[2018-09-12 10:15] VITALS: BP 127/71
[2018-09-12] MEDS: PANTOPROZOLE 40MG TABLET PO SCH ×2 (10:31→17:48)
[2018-09-12] MEDS: AMLODIPINE 5 MG TABLET PO SCH (10:31)
[2018-09-12] MEDS: LISINOPRIL 10 MG TABLET PO SCH (10:32)
[2018-09-12] MEDS: THIAMINE 100MG TABLET PO SCH (10:32)
[2018-09-12 13:19] VITALS: BP 111/72
[2018-09-12 14:10] VITALS: BP 138/87
[2018-09-12 18:38] VITALS: BP 128/77
[2018-09-13 00:37] VITALS: BP 104/61
[2018-09-13] MEDS: CEPHALEXIN 500 MG CAPSULE PO SCH ×3 (04:51→21:29)
[2018-09-13] MEDS: CLINDAMYCIN PMX 600MG/50ML 50 ML IV SCH ×3 (04:51→21:29)
[2018-09-13 07:09] VITALS: BP 119/71
[2018-09-13] MEDS: PANTOPROZOLE 40MG TABLET PO SCH ×2 (08:02→17:44)
[2018-09-13] MEDS: LISINOPRIL 10 MG TABLET PO SCH (08:02)
[2018-09-13] MEDS: AMLODIPINE 5 MG TABLET PO SCH (08:02)
[2018-09-13] MEDS: SODIUM BICARBONATE 650 MG TABLET PO SCH (08:02)
[2018-09-13] MEDS: THIAMINE 100MG TABLET PO SCH (08:02)
[2018-09-13 12:57] VITALS: BP 124/73
[2018-09-13 20:49] VITALS: BP 128/71
[2018-09-14 02:52] VITALS: BP 119/66
[2018-09-14] MEDS: CLINDAMYCIN PMX 600MG/50ML 50 ML IV SCH ×3 (05:29→21:52)
[2018-09-14] MEDS: CEPHALEXIN 500 MG CAPSULE PO SCH ×3 (05:29→21:52)
[2018-09-14 07:01] VITALS: BP 122/69
[2018-09-14] MEDS: PANTOPROZOLE 40MG TABLET PO SCH ×2 (08:33→17:39)
[2018-09-14] MEDS: THIAMINE 100MG TABLET PO SCH (08:33)
[2018-09-14] MEDS: AMLODIPINE 5 MG TABLET PO SCH (08:33)
[2018-09-14] MEDS: LISINOPRIL 10 MG TABLET PO SCH (08:33)
[2018-09-14] MEDS: SODIUM BICARBONATE 650 MG TABLET PO SCH (08:33)
[2018-09-14 14:21] VITALS: BP 126/73
[2018-09-14 20:21] VITALS: BP 118/69
[2018-09-15 02:45] VITALS: BP 129/68
[2018-09-15] MEDS: CLINDAMYCIN PMX 600MG/50ML 50 ML IV SCH (05:33)
[2018-09-15] MEDS: CEPHALEXIN 500 MG CAPSULE PO SCH (05:33)
[2018-09-15 07:54] VITALS: BP 115/61
[2018-09-15] MEDS: PANTOPROZOLE 40MG TABLET PO SCH ×2 (08:18→17:53)
[2018-09-15] MEDS: THIAMINE 100MG TABLET PO SCH (08:19)
[2018-09-15] MEDS: SODIUM BICARBONATE 650 MG TABLET PO SCH (08:19)
[2018-09-15] MEDS: LISINOPRIL 10 MG TABLET PO SCH (08:22)
[2018-09-15 08:23] VITALS: BP 104/58
[2018-09-15] MEDS: AMLODIPINE 5 MG TABLET PO SCH (08:23)
[2018-09-15 13:21] VITALS: BP 118/78
[2018-09-15 18:42] VITALS: BP 138/72
[2018-09-16 03:06] VITALS: BP 121/63
[2018-09-16 08:01] VITALS: BP 126/75
[2018-09-16] MEDS: SODIUM BICARBONATE 650 MG TABLET PO SCH (08:37)
[2018-09-16] MEDS: AMLODIPINE 5 MG TABLET PO SCH (08:37)
[2018-09-16] MEDS: THIAMINE 100MG TABLET PO SCH (08:38)
[2018-09-16] MEDS: PANTOPROZOLE 40MG TABLET PO SCH ×2 (08:38→17:06)
[2018-09-16] MEDS: LISINOPRIL 10 MG TABLET PO SCH (08:38)
[2018-09-16 12:53] VITALS: BP 124/70
[2018-09-16 19:34] VITALS: BP 129/70
[2018-09-17 00:34] VITALS: BP 133/70
[2018-09-17 07:29] VITALS: BP 130/70
[2018-09-17] MEDS: AMLODIPINE 5 MG TABLET PO SCH (08:47)
[2018-09-17] MEDS: PANTOPROZOLE 40MG TABLET PO SCH ×2 (08:47→17:00)
[2018-09-17] MEDS: LISINOPRIL 10 MG TABLET PO SCH (08:47)
[2018-09-17] MEDS: THIAMINE 100MG TABLET PO SCH (08:47)
[2018-09-17] MEDS: SODIUM BICARBONATE 650 MG TABLET PO SCH (08:47)
[2018-09-17 14:17] VITALS: BP 144/79
[2018-09-17 18:39] VITALS: BP 138/75
[2018-09-18 01:17] VITALS: BP 137/72
[2018-09-18 07:52] VITALS: BP 114/68
[2018-09-18] MEDS: LISINOPRIL 10 MG TABLET PO SCH (09:40)
[2018-09-18] MEDS: AMLODIPINE 5 MG TABLET PO SCH (09:40)
[2018-09-18] MEDS: SODIUM BICARBONATE 650 MG TABLET PO SCH (09:40)
[2018-09-18] MEDS: PANTOPROZOLE 40MG TABLET PO SCH ×2 (09:40→17:10)
[2018-09-18] MEDS: THIAMINE 100MG TABLET PO SCH (09:40)
[2018-09-18 12:16] VITALS: BP 126/66
[2018-09-18] MEDS: ERGOCALCIFEROL 50,000 UNIT CAPSULE PO SCH (12:44)
[2018-09-18 21:24] VITALS: BP 146/77
[2018-09-19 01:23] VITALS: BP 142/69
[2018-09-19 07:41] VITALS: BP 139/64
[2018-09-19] MEDS: THIAMINE 100MG TABLET PO SCH (08:41)
[2018-09-19] MEDS: SODIUM BICARBONATE 650 MG TABLET PO SCH (08:41)
[2018-09-19] MEDS: AMLODIPINE 5 MG TABLET PO SCH (08:41)
[2018-09-19] MEDS: PANTOPROZOLE 40MG TABLET PO SCH ×2 (08:41→17:19)
[2018-09-19] MEDS: LISINOPRIL 10 MG TABLET PO SCH (08:41)
[2018-09-19 12:56] VITALS: BP 129/76
[2018-09-19 18:57] VITALS: BP 125/70
[2018-09-20 01:20] VITALS: BP 138/74
[2018-09-20 08:12] VITALS: BP 127/61
[2018-09-20] MEDS: LISINOPRIL 10 MG TABLET PO SCH (08:56)
[2018-09-20] MEDS: AMLODIPINE 5 MG TABLET PO SCH (08:56)
[2018-09-20] MEDS: THIAMINE 100MG TABLET PO SCH (08:56)
[2018-09-20] MEDS: SODIUM BICARBONATE 650 MG TABLET PO SCH (08:56)
[2018-09-20] MEDS: PANTOPROZOLE 40MG TABLET PO SCH ×2 (08:56→17:26)
[2018-09-20 15:00] VITALS: BP 122/56
[2018-09-20 20:20] VITALS: BP 131/74
[2018-09-21 00:26] VITALS: BP 135/68
[2018-09-21 07:56] VITALS: BP 131/74
[2018-09-21 08:05] VITALS: BP 139/73
[2018-09-21] MEDS: THIAMINE 100MG TABLET PO SCH (08:33)
[2018-09-21] MEDS: AMLODIPINE 5 MG TABLET PO SCH (08:33)
[2018-09-21] MEDS: PANTOPROZOLE 40MG TABLET PO SCH ×2 (08:33→17:40)
[2018-09-21] MEDS: SODIUM BICARBONATE 650 MG TABLET PO SCH (08:33)
[2018-09-21] MEDS: LISINOPRIL 10 MG TABLET PO SCH (08:34)
[2018-09-21 12:43] VITALS: BP 136/76
[2018-09-21 20:08] VITALS: BP 134/69
[2018-09-22 02:59] VITALS: BP 148/73
[2018-09-22 08:16] VITALS: BP 115/68
[2018-09-22] MEDS: AMLODIPINE 5 MG TABLET PO SCH (09:31)
[2018-09-22] MEDS: SODIUM BICARBONATE 650 MG TABLET PO SCH (09:32)
[2018-09-22] MEDS: PANTOPROZOLE 40MG TABLET PO SCH ×2 (09:32→17:47)
[2018-09-22] MEDS: THIAMINE 100MG TABLET PO SCH (09:32)
[2018-09-22] MEDS: LISINOPRIL 10 MG TABLET PO SCH (09:32)
[2018-09-22 16:19] VITALS: BP 133/80
[2018-09-22 19:22] VITALS: BP 168/70
[2018-09-23 01:03] VITALS: BP 164/77
[2018-09-23 08:29] VITALS: BP 130/80
[2018-09-23] MEDS: SODIUM BICARBONATE 650 MG TABLET PO SCH (08:45)
[2018-09-23] MEDS: PANTOPROZOLE 40MG TABLET PO SCH ×2 (08:46→17:10)
[2018-09-23] MEDS: LISINOPRIL 10 MG TABLET PO SCH (08:46)
[2018-09-23] MEDS: AMLODIPINE 5 MG TABLET PO SCH (08:46)
[2018-09-23] MEDS: THIAMINE 100MG TABLET PO SCH (08:46)
[2018-09-23 14:25] VITALS: BP 123/75
[2018-09-23 19:43] VITALS: BP 132/79
[2018-09-24 02:23] VITALS: BP_SYST 118; BP_SYST 18; BP_DIAS 79
[2018-09-24 07:48] VITALS: BP 118/70
[2018-09-24] MEDS: PANTOPROZOLE 40MG TABLET PO SCH ×2 (08:19→16:19)
[2018-09-24] MEDS: AMLODIPINE 5 MG TABLET PO SCH (08:19)
[2018-09-24] MEDS: SODIUM BICARBONATE 650 MG TABLET PO SCH (08:19)
[2018-09-24] MEDS: LISINOPRIL 10 MG TABLET PO SCH (08:19)
[2018-09-24] MEDS: THIAMINE 100MG TABLET PO SCH (08:20)
[2018-09-24 14:35] VITALS: BP 108/66
[2018-09-24 20:28] VITALS: BP 132/67
[2018-09-25 02:57] VITALS: BP 130/70
[2018-09-25 07:45] VITALS: BP 118/70
[2018-09-25] MEDS: PANTOPROZOLE 40MG TABLET PO SCH ×2 (07:49→17:36)
[2018-09-25] MEDS: THIAMINE 100MG TABLET PO SCH (07:49)
[2018-09-25] MEDS: LISINOPRIL 10 MG TABLET PO SCH (07:49)
[2018-09-25] MEDS: AMLODIPINE 5 MG TABLET PO SCH (07:49)
[2018-09-25] MEDS: SODIUM BICARBONATE 650 MG TABLET PO SCH (07:50)
[2018-09-25] MEDS: ERGOCALCIFEROL 50,000 UNIT CAPSULE PO SCH (11:55)
[2018-09-25 13:11] VITALS: BP 112/69
[2018-09-25 16:06] LABS: CLOSTRIDIUM DIFFICILE ANTIGEN POSITIVE; CLOSTRIDIUM DIFFICILE TOXIN POSITIVE (Negative)
[2018-09-25] MEDS: HEPARIN 5,000 UNITS/ML, 1ML SQ SCH (17:36)
[2018-09-25] MEDS: VANCOMYCIN 50 MG/ML ORAL SUSP PO SCH ×2 (18:01→23:51)
[2018-09-25 19:50] VITALS: BP 89/51
[2018-09-25 22:45] VITALS: BP 117/70
[2018-09-26] MEDS: HEPARIN 5,000 UNITS/ML, 1ML SQ SCH ×3 (01:51→17:00)
[2018-09-26 01:58] VITALS: BP 100/61
[2018-09-26] MEDS: VANCOMYCIN 50 MG/ML ORAL SUSP PO SCH ×3 (06:36→17:01)
[2018-09-26 07:20] VITALS: BP 100/64
[2018-09-26 08:00] LABS: ALANINE AMINOTRANSFERASE 44 U/L (12-78); ALBUMIN 2.9 g/dL (3.4-5.0); ANION GAP 8 mmol/L (5-15); CALCIUM 8.2 mg/dL (8.5-10.1); CHLORIDE 111 mmol/L (98-107); CREATININE 2.02 mg/dL (0.7-1.3)
[2018-09-26 08:02] LABS: ALKALINE PHOSPHATASE 82 U/L (45-117); BILIRUBIN,TOTAL 0.4 mg/dL (0.2-1.0); TOTAL PROTEIN 7.6 g/dL (6.4-8.2)
[2018-09-26 08:03] LABS: BASOPHILS # (AUTO) 0.01 x10^3/uL (0-0.1); BASOPHILS % (AUTO) 0 % (0-1); EOSINOPHILS # (AUTO) 0.17 x10^3/uL (0-0.4); EOSINOPHILS % (AUTO) 2 % (1-7); LYMPHOCYTES % (AUTO) 15 % (22-44); MD NO; MEAN CORPUSCULAR HEMOGLOBIN 30.9 pg (27.5-34.5); MEAN CORPUSCULAR HGB CONC 33.1 g/dL (33.2-36.2); MEAN CORPUSCULAR VOLUME 93.4 fL (81-97); MEAN PLATELET VOLUME 7.3 fL (7.4-10.4); MONOCYTES # (AUTO) 0.81 x10^3/uL (0.2-0.8); MONOCYTES % (AUTO) 9 % (2-9); NEUTROPHILS # (AUTO) 6.96 x10^3/uL (1.8-6.8); NEUTROPHILS % (AUTO) 75 % (42-75); PLATELET COUNT 254 x10^3/uL (130-400); RED BLOOD COUNT 3.63 x10^6/uL (4.38-5.82); RED CELL DISTRIBUTION WIDTH 15.8 % (9.4-14.8)
[2018-09-26] MEDS: AMLODIPINE 5 MG TABLET PO SCH (08:40)
[2018-09-26] MEDS: LISINOPRIL 10 MG TABLET PO SCH (08:40)
[2018-09-26] MEDS: THIAMINE 100MG TABLET PO SCH (08:40)
[2018-09-26] MEDS: SODIUM BICARBONATE 650 MG TABLET PO SCH (08:40)
[2018-09-26] MEDS: PANTOPROZOLE 40MG TABLET PO SCH ×2 (08:41→17:00)
[2018-09-26] MEDS: SODIUM CHLORIDE 0.9% 1,000 ML IV SCH ×2 (10:45→23:12)
[2018-09-26 12:41] VITALS: BP 95/59
[2018-09-26 19:47] VITALS: BP 104/65
[2018-09-27] MEDS: VANCOMYCIN 50 MG/ML ORAL SUSP PO SCH ×5 (00:38→23:52)
[2018-09-27 01:07] VITALS: BP 121/63
[2018-09-27] MEDS: HEPARIN 5,000 UNITS/ML, 1ML SQ SCH ×3 (01:34→17:04)
[2018-09-27 05:05] LABS: ANION GAP 8 mmol/L (5-15); CALCIUM 8.3 mg/dL (8.5-10.1); CHLORIDE 113 mmol/L (98-107); CREATININE 1.78 mg/dL (0.7-1.3)
[2018-09-27] MEDS: SODIUM CHLORIDE 0.9% 1,000 ML IV SCH (06:11)
[2018-09-27 07:59] VITALS: BP 116/68
[2018-09-27] MEDS: SODIUM BICARBONATE 650 MG TABLET PO SCH (08:53)
[2018-09-27] MEDS: LISINOPRIL 10 MG TABLET PO SCH (08:53)
[2018-09-27] MEDS: THIAMINE 100MG TABLET PO SCH (08:53)
[2018-09-27] MEDS: PANTOPROZOLE 40MG TABLET PO SCH ×2 (08:53→17:03)
[2018-09-27] MEDS: AMLODIPINE 5 MG TABLET PO SCH (08:53)
[2018-09-27 12:23] VITALS: BP 101/61
[2018-09-27 19:06] VITALS: BP 115/59
[2018-09-28] MEDS: HEPARIN 5,000 UNITS/ML, 1ML SQ SCH ×3 (01:20→16:39)
[2018-09-28 01:25] VITALS: BP 113/67
[2018-09-28] MEDS: VANCOMYCIN 50 MG/ML ORAL SUSP PO SCH ×3 (07:10→17:51)
[2018-09-28 07:17] VITALS: BP 106/45
[2018-09-28] MEDS ORDERED: SODIUM CHLORIDE 0.9% 1,000 ML IV SCH (10:00)
[2018-09-28] MEDS: AMLODIPINE 5 MG TABLET PO SCH (10:50)
[2018-09-28] MEDS: PANTOPROZOLE 40MG TABLET PO SCH ×2 (10:50→16:39)
[2018-09-28] MEDS: SODIUM BICARBONATE 650 MG TABLET PO SCH (10:50)
[2018-09-28] MEDS: LISINOPRIL 10 MG TABLET PO SCH (10:51)
[2018-09-28] MEDS: THIAMINE 100MG TABLET PO SCH (10:51)
[2018-09-28 12:31] LABS: ANION GAP 7 mmol/L (5-15); CALCIUM 8.5 mg/dL (8.5-10.1); CHLORIDE 112 mmol/L (98-107); CREATININE 1.52 mg/dL (0.7-1.3)
[2018-09-28 14:09] VITALS: BP 127/57
[2018-09-28 20:15] VITALS: BP 117/53
[2018-09-29] MEDS: VANCOMYCIN 50 MG/ML ORAL SUSP PO SCH ×4 (00:44→18:24)
[2018-09-29] MEDS: HEPARIN 5,000 UNITS/ML, 1ML SQ SCH ×3 (00:44→16:54)
[2018-09-29 03:14] VITALS: BP 110/60
[2018-09-29 08:11] LABS: ANION GAP 5 mmol/L (5-15); CALCIUM 8.6 mg/dL (8.5-10.1); CHLORIDE 112 mmol/L (98-107); CREATININE 1.46 mg/dL (0.7-1.3)
[2018-09-29] MEDS: THIAMINE 100MG TABLET PO SCH (08:18)
[2018-09-29] MEDS: PANTOPROZOLE 40MG TABLET PO SCH ×2 (08:18→16:54)
[2018-09-29 08:19] VITALS: BP 107/56
[2018-09-29] MEDS: SODIUM BICARBONATE 650 MG TABLET PO SCH (08:19)
[2018-09-29] MEDS: LISINOPRIL 10 MG TABLET PO SCH (08:19)
[2018-09-29] MEDS: AMLODIPINE 5 MG TABLET PO SCH (08:19)
[2018-09-29] MEDS: D5%-0.45% NACL 1,000 ML IV SCH ×2 (13:02→22:24)
[2018-09-29 13:06] VITALS: BP 118/58
[2018-09-29 19:08] VITALS: BP 113/72
[2018-09-30 01:19] VITALS: BP 104/52
[2018-09-30] MEDS: HEPARIN 5,000 UNITS/ML, 1ML SQ SCH ×4 (01:30→17:59)
[2018-09-30] MEDS: VANCOMYCIN 50 MG/ML ORAL SUSP PO SCH ×4 (01:37→18:38)
[2018-09-30 04:43] LABS: ANION GAP 9 mmol/L (5-15); CHLORIDE 112 mmol/L (98-107); CREATININE 1.37 mg/dL (0.7-1.3)
[2018-09-30 08:02] VITALS: BP 118/56
[2018-09-30] MEDS: THIAMINE 100MG TABLET PO SCH (08:09)
[2018-09-30] MEDS: AMLODIPINE 5 MG TABLET PO SCH (08:09)
[2018-09-30] MEDS: PANTOPROZOLE 40MG TABLET PO SCH ×2 (08:09→17:59)
[2018-09-30] MEDS: LISINOPRIL 10 MG TABLET PO SCH (08:09)
[2018-09-30] MEDS: D5%-0.45% NACL 1,000 ML IV SCH ×2 (08:10→18:01)
[2018-09-30 12:51] VITALS: BP 129/64
[2018-09-30 19:16] VITALS: BP 131/74
[2018-10-01] MEDS: VANCOMYCIN 50 MG/ML ORAL SUSP PO SCH ×4 (00:54→19:56)
[2018-10-01] MEDS: HEPARIN 5,000 UNITS/ML, 1ML SQ SCH ×3 (00:54→16:06)
[2018-10-01 02:16] VITALS: BP 131/81
[2018-10-01 03:37] LABS: ANION GAP 6 mmol/L (5-15); CHLORIDE 109 mmol/L (98-107)
[2018-10-01] MEDS: D5%-0.45% NACL 1,000 ML IV SCH ×2 (04:47→14:05)
[2018-10-01 07:02] VITALS: BP 132/69
[2018-10-01] MEDS: PANTOPROZOLE 40MG TABLET PO SCH ×2 (07:56→16:06)
[2018-10-01] MEDS: AMLODIPINE 5 MG TABLET PO SCH (07:56)
[2018-10-01] MEDS: THIAMINE 100MG TABLET PO SCH (07:57)
[2018-10-01] MEDS: LISINOPRIL 10 MG TABLET PO SCH (07:57)
[2018-10-01 13:00] VITALS: BP 128/69
[2018-10-01 19:45] VITALS: BP 139/67
[2018-10-02] MEDS: D5%-0.45% NACL 1,000 ML IV SCH (00:25)
[2018-10-02 00:28] VITALS: BP 123/64
[2018-10-02] MEDS: VANCOMYCIN 50 MG/ML ORAL SUSP PO SCH ×4 (01:56→19:46)
[2018-10-02] MEDS: HEPARIN 5,000 UNITS/ML, 1ML SQ SCH ×3 (01:56→16:03)
[2018-10-02 08:09] LABS: ANION GAP 8 mmol/L (5-15); CALCIUM 7.7 mg/dL (8.5-10.1); CHLORIDE 110 mmol/L (98-107); CREATININE 1.25 mg/dL (0.7-1.3)
[2018-10-02 08:28] VITALS: BP 113/71
[2018-10-02] MEDS: AMLODIPINE 5 MG TABLET PO SCH (08:32)
[2018-10-02] MEDS: THIAMINE 100MG TABLET PO SCH (08:33)
[2018-10-02] MEDS: LISINOPRIL 10 MG TABLET PO SCH (08:33)
[2018-10-02] MEDS: PANTOPROZOLE 40MG TABLET PO SCH ×2 (08:33→16:03)
[2018-10-02] MEDS: ERGOCALCIFEROL 50,000 UNIT CAPSULE PO SCH (12:24)
[2018-10-02 14:17] VITALS: BP 128/59
[2018-10-02 19:27] VITALS: BP 119/61
[2018-10-03 01:06] VITALS: BP 120/53
[2018-10-03] MEDS: HEPARIN 5,000 UNITS/ML, 1ML SQ SCH ×3 (01:30→17:20)
[2018-10-03] MEDS: VANCOMYCIN 50 MG/ML ORAL SUSP PO SCH ×4 (01:38→19:23)
[2018-10-03 07:30] VITALS: BP 108/56
[2018-10-03] MEDS: LISINOPRIL 10 MG TABLET PO SCH (09:00)
[2018-10-03] MEDS: PANTOPROZOLE 40MG TABLET PO SCH ×2 (09:14→17:20)
[2018-10-03] MEDS: THIAMINE 100MG TABLET PO SCH (09:14)
[2018-10-03] MEDS: AMLODIPINE 5 MG TABLET PO SCH (09:15)
[2018-10-03 13:28] VITALS: BP 110/67
[2018-10-03 19:24] VITALS: BP 96/50
[2018-10-03 19:27] VITALS: BP 97/51
[2018-10-04] MEDS: HEPARIN 5,000 UNITS/ML, 1ML SQ SCH ×3 (01:25→17:01)
[2018-10-04] MEDS: VANCOMYCIN 50 MG/ML ORAL SUSP PO SCH ×4 (01:26→19:41)
[2018-10-04 01:31] VITALS: BP 97/53
[2018-10-04 06:53] VITALS: BP 103/54
[2018-10-04] MEDS: PANTOPROZOLE 40MG TABLET PO SCH ×2 (07:48→17:00)
[2018-10-04] MEDS: AMLODIPINE 5 MG TABLET PO SCH (07:48)
[2018-10-04] MEDS: THIAMINE 100MG TABLET PO SCH (07:48)
[2018-10-04] MEDS: LISINOPRIL 10 MG TABLET PO SCH (07:49)
[2018-10-04 13:29] VITALS: BP 109/68
[2018-10-04 18:58] VITALS: BP 119/61
[2018-10-05] MEDS: VANCOMYCIN 50 MG/ML ORAL SUSP PO SCH ×4 (01:31→22:23)
[2018-10-05] MEDS: HEPARIN 5,000 UNITS/ML, 1ML SQ SCH ×3 (01:32→16:34)
[2018-10-05 02:19] VITALS: BP 120/65
[2018-10-05 08:00] VITALS: BP 147/46
[2018-10-05] MEDS: PANTOPROZOLE 40MG TABLET PO SCH ×2 (08:55→16:34)
[2018-10-05] MEDS: AMLODIPINE 5 MG TABLET PO SCH (08:55)
[2018-10-05] MEDS: THIAMINE 100MG TABLET PO SCH (08:55)
[2018-10-05] MEDS: LISINOPRIL 10 MG TABLET PO SCH (08:56)
[2018-10-05 13:45] VITALS: BP 117/60
[2018-10-05 20:01] VITALS: BP 118/52
[2018-10-06] MEDS: HEPARIN 5,000 UNITS/ML, 1ML SQ SCH ×3 (01:56→16:11)
[2018-10-06 01:59] VITALS: BP 107/59
[2018-10-06] MEDS: VANCOMYCIN 50 MG/ML ORAL SUSP PO SCH ×3 (04:14→16:11)
[2018-10-06 08:36] VITALS: BP 118/52
[2018-10-06] MEDS: AMLODIPINE 5 MG TABLET PO SCH (08:43)
[2018-10-06] MEDS: LISINOPRIL 10 MG TABLET PO SCH (08:44)
[2018-10-06] MEDS: PANTOPROZOLE 40MG TABLET PO SCH ×2 (08:44→16:11)
[2018-10-06] MEDS: THIAMINE 100MG TABLET PO SCH (08:45)
[2018-10-06] MEDS ORDERED: AMLO-150 PO (11:10)
[2018-10-06] MEDS ORDERED: THIA100T67 PO (11:10)
[2018-10-06] MEDS ORDERED: CLON1PAT2 TD (11:10)
[2018-10-06] MEDS ORDERED: ERGO500017 PO (11:10)
[2018-10-06] MEDS ORDERED: VANC1VIA3 PO (11:10)
[2018-10-06] MEDS ORDERED: PANT40TA5 PO (11:10)
[2018-10-06] MEDS ORDERED: LISI-167 PO (11:10)
[2018-10-06 12:48] VITALS: BP 131/61
== END 2018-10-06 17:30 | disposition home health service (06) | DRG 871 ==
LOC: ED 07:50 → EDIP 11:08 → 4WST 11:52 → 4EST 09-05 02:26 → 3NW 09-25 06:52
PROVIDERS: ADMIT Internal Medicine; ATTEND Hospitalist
PROC: 0T9B70Z Drainage of Bladder with Drainage Device, Via Natural or Artificial Opening (ICD-10-PCS; principal; 2018-09-03)
DX: A40.9 Streptococcal sepsis, unspecified (principal); G92 Toxic encephalopathy; E43 Unspecified severe protein-calorie malnutrition; J18.9 Pneumonia, unspecified organism; J96.01 Acute respiratory failure with hypoxia; N17.0 Acute kidney failure with tubular necrosis; E44.0 Moderate protein-calorie malnutrition; A04.72 Enterocolitis due to Clostridium difficile, not specified as recurrent; E87.0 Hyperosmolality and hypernatremia; I45.2 Bifascicular block; J81.1 Chronic pulmonary edema; L03.114 Cellulitis of left upper limb; L03.115 Cellulitis of right lower limb; L03.116 Cellulitis of left lower limb; N39.0 Urinary tract infection, site not specified; L03.113 Cellulitis of right upper limb; B86 Scabies; E86.0 Dehydration; Z68.21 Body mass index [BMI] 21.0-21.9, adult; B95.0 Streptococcus, group A, as the cause of diseases classified elsewhere; B95.61 Methicillin susceptible Staphylococcus aureus infection as the cause of diseases classified elsewhere; D50.9 Iron deficiency anemia, unspecified; E21.3 Hyperparathyroidism, unspecified; E55.9 Vitamin D deficiency, unspecified; E87.6 Hypokalemia; Z66 Do not resuscitate; M19.90 Unspecified osteoarthritis, unspecified site; R53.81 Other malaise; F03.90 Unspecified dementia, unspecified severity, without behavioral disturbance, psychotic disturbance, mood disturbance, and anxiety; I12.9 Hypertensive chronic kidney disease with stage 1 through stage 4 chronic kidney disease, or unspecified chronic kidney disease; N18.9 Chronic kidney disease, unspecified; J32.0 Chronic maxillary sinusitis; N25.0 Renal osteodystrophy; W57.XXXA Bitten or stung by nonvenomous insect and other nonvenomous arthropods, initial encounter; T14.8XXA Other injury of unspecified body region, initial encounter; Y93.89 Activity, other specified; Y92.89 Other specified places as the place of occurrence of the external cause; Y99.8 Other external cause status; Z59.0 Homelessness; Z78.1 Physical restraint status; Z87.820 Personal history of traumatic brain injury
CPT/HCPCS: 36415; 36600; 70450; 70551; 71045; 71250; 76770; 80048; 80053; 80069; 80202; 81001; 82040; 82150; 82272; 82306; 82310; 82436; 82550; 82565; 82570; 82728; 82803; 83540; 83550; 83605; 83690; 83735; 83880; 83935; 83970; 84100; 84133; 84134; 84145; 84155; 84156; 84165; 84166; 84300; 84550; 85025; 85045; 85651; 86140; 86480; 86592; 87040; 87077; 87086; 87147; 87181; 87186; 87205; 87324; 87400; 87806; 93005; 93306; 93970; 94640; 95819; 96361; 96365; 96375; 99285; G0378; J0295; J0696; J1644; J1756; J1940; J2405; J2543; J3370; J3411; J3480; J7070; J7613; 92523-GN; C9113; G0475; G0515-GN; J0360; J1200; J2060; J7030; J7050; Q0163

== ENCOUNTER 2019-01-28 20:52 | Observation (INO) | payer MEDICARE ==
[~2019-01-28] VITALS: Ht 172.7 cm; Wt 67.4 kg
[~2019-01-28 20:52] MED LIST: AMLO-150 PO; CLON1PAT2 TD; ERGO500017 PO; LISI-167 PO; PANT40TA5 PO; THIA100T67 PO; VANC1VIA3 PO
[2019-01-28] MEDS ORDERED: PANTOPRAZOLE 80 MG in SODIUM CHLORIDE 0.9% 100 ML IV SCH (21:19)
[2019-01-28] MEDS ORDERED: PANTOPRAZOLE 80 MG in SODIUM CHLORIDE 0.9% 50 ML IVPB ONE (21:19)
[2019-01-28] MEDS ORDERED: ONDANSETRON 2MG/ML, 2ML IVPush ONE (21:30)
[2019-01-28] MEDS ORDERED: SODIUM CHLORIDE FLUSH 10ML SYR IVF ONE (21:30)
[2019-01-28] MEDS ORDERED: ONDANSETRON 2MG/ML, 2ML ONE (21:33)
[2019-01-28 21:57] LABS: BASOPHILS # (AUTO) 0.02 x10^3/uL (0-0.1); BASOPHILS % (AUTO) 0 % (0-1); EOSINOPHILS # (AUTO) 0.02 x10^3/uL (0-0.4); EOSINOPHILS % (AUTO) 0 % (1-7); LYMPHOCYTES # (AUTO) 0.52 x10^3/uL (1-3.4); LYMPHOCYTES % (AUTO) 6 % (22-44); MD NO; MEAN CORPUSCULAR HGB CONC 34.8 g/dL (33.2-36.2); MEAN CORPUSCULAR VOLUME 91.8 fL (81-97); MEAN PLATELET VOLUME 7.8 fL (7.4-10.4); MONOCYTES # (AUTO) 0.39 x10^3/uL (0.2-0.8); MONOCYTES % (AUTO) 5 % (2-9); NEUTROPHILS # (AUTO) 7.64 x10^3/uL (1.8-6.8); NEUTROPHILS % (AUTO) 89 % (42-75); PLATELET COUNT 223 x10^3/uL (130-400); RED BLOOD COUNT 4.02 x10^6/uL (4.38-5.82); RED CELL DISTRIBUTION WIDTH 15.6 % (9.4-14.8)
[2019-01-28 22:08] LABS: INTERNATIONAL NORMALIZED RATIO 0.96 (0.93-1.1); PROTHROMBIN TIME 10.1 Seconds (9.6-11.5)
[2019-01-28 22:10] LABS: ALANINE AMINOTRANSFERASE 19 U/L (12-78); ALBUMIN 4.2 g/dL (3.4-5.0); ANION GAP 14 mmol/L (5-15); CALCIUM 8.6 mg/dL (8.5-10.1); CHLORIDE 104 mmol/L (98-107); CREATININE 1.48 mg/dL (0.7-1.3)
[2019-01-28 22:12] LABS: ALKALINE PHOSPHATASE 76 U/L (45-117); BILIRUBIN,TOTAL 0.7 mg/dL (0.2-1.0); TOTAL PROTEIN 7.3 g/dL (6.4-8.2)
--- NOTE | 2019-01-28 22:15 | NUR ---
PT SLEEPING IN GURNEY, EQUAL CHEST RISE AND FALL, PROTONIX GTT INFUSING. CALL LIGHT WITHIN REACH. PT ON MONITOR
--- NOTE | 2019-01-28 22:51 | NUR ---
ORANGE JUICE GIVEN
[2019-01-28] MEDS: SODIUM CHLORIDE 0.9% 1,000 ML IV SCH (23:48)
[2019-01-29 00:09] VITALS: BP 126/72
[2019-01-29 00:10] VITALS: BP 126/72
[2019-01-29 03:11] LABS: MICROSCOPIC AUTO
[2019-01-29 03:12] LABS: CULTURE INDICATED? NO
[2019-01-29 04:33] LABS: BASOPHILS # (AUTO) 0.02 x10^3/uL (0-0.1); BASOPHILS % (AUTO) 0 % (0-1); EOSINOPHILS # (AUTO) 0.06 x10^3/uL (0-0.4); EOSINOPHILS % (AUTO) 1 % (1-7); LYMPHOCYTES # (AUTO) 0.96 x10^3/uL (1-3.4); LYMPHOCYTES % (AUTO) 14 % (22-44); MD NO; MEAN CORPUSCULAR HEMOGLOBIN 31.4 pg (27.5-34.5); MEAN CORPUSCULAR HGB CONC 34.1 g/dL (33.2-36.2); MEAN PLATELET VOLUME 7.6 fL (7.4-10.4); MONOCYTES # (AUTO) 0.64 x10^3/uL (0.2-0.8); MONOCYTES % (AUTO) 9 % (2-9); NEUTROPHILS # (AUTO) 5.45 x10^3/uL (1.8-6.8); NEUTROPHILS % (AUTO) 76 % (42-75); PLATELET COUNT 232 x10^3/uL (130-400); RED BLOOD COUNT 3.81 x10^6/uL (4.38-5.82); RED CELL DISTRIBUTION WIDTH 14.7 % (9.4-14.8)
[2019-01-29 04:39] LABS: ANION GAP 8 mmol/L (5-15); CALCIUM 8.4 mg/dL (8.5-10.1); CHLORIDE 106 mmol/L (98-107); CREATININE 1.42 mg/dL (0.7-1.3)
[2019-01-29] MEDS: SODIUM CHLORIDE 0.9% 1,000 ML IV SCH ×2 (07:32→09:46)
[2019-01-29 07:50] VITALS: BP 132/74
[2019-01-29] MEDS: PANTOPROZOLE 40MG TABLET PO SCH ×3 (09:42→20:21)
[2019-01-29] MEDS: AMLODIPINE 5 MG TABLET PO SCH (09:42)
[2019-01-29] MEDS: LISINOPRIL 10 MG TABLET PO SCH (09:42)
[2019-01-29 13:31] VITALS: BP 126/68
[2019-01-29 18:41] VITALS: BP 119/73
[2019-01-30] MEDS: SODIUM CHLORIDE 0.9% 1,000 ML IV SCH ×2 (00:15→09:04)
[2019-01-30 00:36] VITALS: BP 106/56
[2019-01-30 06:52] VITALS: BP 123/74
[2019-01-30] MEDS: PANTOPROZOLE 40MG TABLET PO SCH (09:02)
[2019-01-30] MEDS: LISINOPRIL 10 MG TABLET PO SCH (09:02)
[2019-01-30] MEDS: AMLODIPINE 5 MG TABLET PO SCH (09:02)
[2019-01-30] MEDS ORDERED: PANT40TA5 PO (11:51)
[2019-01-30 12:31] VITALS: BP 115/57
== END 2019-01-30 15:45 | disposition home or self-care (01) ==
LOC: ED 23:06 → INTOOBSV 23:07 → EDIP 23:07 → 3NW 23:33
PROVIDERS: ADMIT Internal Medicine; ATTEND Internal Medicine
DX: R11.10 Vomiting, unspecified (principal); F10.20 Alcohol dependence, uncomplicated; I10 Essential (primary) hypertension; K29.20 Alcoholic gastritis without bleeding; Z63.8 Other specified problems related to primary support group; Z79.899 Other long term (current) drug therapy; Z87.820 Personal history of traumatic brain injury
CPT/HCPCS: 36415; 80048; 80053; 80307; 81001; 83690; 85025; 85610; 85730; 93005; 96361; 96365; 96366; 96375; 96376; 99284; C9113; G0378; J2405; J7030

== ENCOUNTER 2020-03-04 22:41 | Emergency (ER) | payer OTHER ==
[~2020-03-04] VITALS: Ht 175.3 cm; Wt 70.0 kg
[2020-03-04 23:28] VITALS: BP 160/74
--- NOTE | 2020-03-04 23:29 | NUR ---
PATIENT HAS LICE STILL IN PLACE. PATIENT MUST BE RE-DECONTAMINATED PRIOR TO DISCHARGE.
== END 2020-03-05 00:43 | disposition home or self-care (01) ==
LOC: ED 03-05 00:29
DX: B85.3 Phthiriasis (principal); Z72.9 Problem related to lifestyle, unspecified
CPT/HCPCS: 99283

== ENCOUNTER 2020-07-08 07:07 | Emergency (ER) | payer SELFPAY ==
[~2020-07-08] VITALS: Ht 172.7 cm; Wt 68.2 kg
[~2020-07-08 07:07] MED LIST changes: -PANT40TA5 PO; +PANT40TA6 PO
--- NOTE | 2020-07-08 07:10 | NUR ---
Note rosemary in ED - 07/08/20 at 0732 by YOMAIRA PT RESTING CALMLY IN BED WITH EYES CLOSED. NO STATED NEEDS
[2020-07-08 07:41] VITALS: BP 162/70
== END 2020-07-08 09:12 | disposition home or self-care (01) ==
LOC: ED 07:40
DX: B86 Scabies (principal)
CPT/HCPCS: 99283

== ENCOUNTER 2020-08-10 12:42 | Emergency (ER) | payer SELFPAY ==
[~2020-08-10] VITALS: Ht 172.7 cm; Wt 68.2 kg
--- NOTE | 2020-08-10 12:53 | NUR ---
PT ARRIVED IN [facility] FROM [facility]; WAS SEEN AT THAT ID FOR HEAD INJURY R/T FALL. PT UNWILLING TO EXPLAIN "I FEEL SICK". DENIES FEVER, SOB, COUGH, N/V, DIARRHEA. CORNELIA DANGELO NOW BS FOR EXA.
--- NOTE | 2020-08-10 13:43 | NUR ---
PT HAS NOT VOIDED, YET; URINAL AT BS. REMINDED OF NEED FOR URINE SPECIMEN. LAB AT BS
--- NOTE | 2020-08-10 14:03 | NUR ---
VOIDED SPECIMEN PROVIDED.
[2020-08-10 14:04] LABS: BASOPHILS % (AUTO) 0 % (0-1); EOSINOPHILS % (AUTO) 0 % (1-7); LYMPHOCYTES % (AUTO) 14 % (22-44); MEAN CORPUSCULAR HEMOGLOBIN 29.1 pg (27.5-34.5); MEAN CORPUSCULAR HGB CONC 32.9 g/dL (33.2-36.2); MEAN PLATELET VOLUME 7.6 fL (7.4-10.4); MONOCYTES % (AUTO) 18 % (2-9); NEUTROPHILS % (AUTO) 67 % (42-75); PLATELET COUNT 259 x10^3/uL (130-400); RED BLOOD COUNT 3.53 x10^6/uL (4.38-5.82); RED CELL DISTRIBUTION WIDTH 15.5 % (9.4-14.8)
[2020-08-10 14:10] LABS: ALANINE AMINOTRANSFERASE 34 U/L (12-78); ALBUMIN 3.5 g/dL (3.4-5.0); ANION GAP 6 mmol/L (5-15); CALCIUM 8.4 mg/dL (8.5-10.1); CHLORIDE 106 mmol/L (98-107); CREATININE 1.39 mg/dL (0.7-1.3)
[2020-08-10 14:13] LABS: ALKALINE PHOSPHATASE 81 U/L (45-117); BILIRUBIN,TOTAL 0.4 mg/dL (0.2-1.0); MD NO; TOTAL PROTEIN 7.7 g/dL (6.4-8.2)
[2020-08-10 14:20] LABS: MICROSCOPIC INDICATED
--- NOTE | 2020-08-10 14:48 | NUR ---
CHICKEN BROTH PROVIDED TO PT.
[2020-08-10 15:30] VITALS: BP 135/69
--- NOTE | 2020-08-10 15:56 | NUR ---
PT DOZING, EASILY AWAKENED. NOTIFIED OF PENDING DC.
--- NOTE | 2020-08-10 16:12 | NUR ---
OPENED PT'S KNOTTED BELONGINGS BAG TO FACILITATE HIS GETTING DRESSED; BELONINGS CRAWLING W/ BUGS; BAG RESEALED. CLOTHING OBTAINED FROM DONATION LOCKER AND GIVEN TO PT TO DON.
== END 2020-08-10 16:27 | disposition home or self-care (01) ==
LOC: ED 15:35
DX: R53.1 Weakness (principal); R53.83 Other fatigue; I45.10 Unspecified right bundle-branch block
CPT/HCPCS: 36415; 80053; 81001; 85025; 93005; 99284